=== PATIENT | male | born 1995 | race African-American/Black ===

== ENCOUNTER 2016-08-14 05:38 | Emergency (ER) | payer OTHER ==
[2016-08-14] MEDS ORDERED: Ketorolac INJ* 30 MG/ML 1 ML VIAL IV PUSH ONE (07:07)
--- NOTE | 2016-08-14 07:09 | ED ---
Headache - HPI Summary HPI Summary: 21 M presents with multiple complaints. Complaining of nontender cyst on head, headache, intermittent chest pain. He has had headaches in the past. They have increased since he recently quit smoking a week ago. He denies any visual changes, weakness, neck stiffness, or fevers. The headache wraps around his head in a band like distribution and is achy like. He has only taken tea for the pain. He states he sometimes has been getting a sharp like pain in the center of his chest that lasts for a minute and then resolves. It occurred today and has resolved. It is not associated with SOB or any other symptom. He also has these bumps on the back of his head that have been there for over a year. They are not tender and do not drain. He has not cardiac family history. - History Of Current Complaint Chief Complaint: EDHeadache Stated Complaint: HEADACHE Time Seen by Provider: 08/14/16 06:32 - Allergies/Home Medications Allergies/Adverse Reactions: Allergies Allergy/AdvReac Type Severity Reaction Status Date / Time No Known Allergies Allergy Verified 11/04/15 17:05 PMH/Surg Hx/FS Hx/Imm Hx Cardiovascular History: Denies: Hx Hypertension Respiratory History: Denies: Hx Asthma Infectious Disease History: No Infectious Disease History: Denies: Traveled Outside the [place] in Last 30 Days - Family History Known Family History: Positive: Other - food allergies Negative: Cardiac Disease, Hypertension - Social History Alcohol Use: None Substance Use Type: Reports: None, Marijuana - recently quit Smoking Status (MU): Former Smoker Review of Systems Negative: Fever Positive: Chest Pain Negative: Shortness Of Breath, Cough Negative: Abdominal Pain All Other Systems Reviewed And Are Negative: Yes Physical Exam Triage Information Reviewed: Yes Vital Signs On Initial Exam: Initial Vitals Temp Pulse Resp BP Pulse Ox 99.7 F 76 16 128/79 100 08/14/16 05:43 08/14/16 05:43 08/14/16 05:43 08/14/16 05:43 08/14/16 05:43 Vital Signs Reviewed: Yes Appearance: Positive: Well-Appearing Skin: Positive: Warm, Dry, Other - nontender bumps located on scalp without erythema Head/Face: Positive: Normal Head/Face Inspection Eyes: Positive: Normal, Conjunctiva Clear ENT: Positive: Normal ENT inspection, Pharynx normal, TMs normal, Other - sinus nontender Neck: Positive: Supple, Nontender, No Lymphadenopathy. Negative: Nuchal Rigidity Respiratory/Lung Sounds: Positive: Clear to Auscultation, Breath Sounds Present , Other Cardiovascular: Positive: Normal, RRR Neurological: Positive: Sensory/Motor Intact, Alert, Oriented to Person Place, Time, CN Intact II-III Diagnostics - Vital Signs Vital Signs Temp Pulse Resp BP Pulse Ox 08/14/16 05:43 99.7 F 76 16 128/79 100 - Laboratory Result Diagrams: 08/14/16 06:50 08/14/16 06:50 Lab Statement: Any lab studies that have been ordered have been reviewed, and results considered in the medical decision making process. - EKG No standard instances Cardiac Rate: NL EKG Rhythm: Sinus Rhythm Ectopy: None EKG Interpretation: ST elevated but discussed with dr luna but due to age normal EKG Re-Evaluation - Re-Evaluation First Eval Re-Evaluation Time: 08:50 Change: Improved Comment: headache resolved Headache Course/Dx - Course Course Of Treatment: 21 M presents with headache intermittent for a week, bandlike distrubition and has not taken any pain medication for it, no neck pain states has headaches in past but has inc in frequency after quiting marijuna and cigarettes a week ago, chest pain that is sharp like intermittient center of chest, had episode this morning that resolves, nonreproducible and has no cardiac risk factors, did EKG which had some ST elevation that discussed with jeremy is normal for a 21, ordered labs which were normal, bumps on scalp appear to be cyst do not appear infectious will have follow up with primary as do not cause any pain, warned about signs of infection to return, reassured that chest pain is not cardiac like and headache is likely a tension headache, patient will establish care with PCP, patient agrees with plan - Diagnoses Differential Diagnosis/HQI/PQRI: Sinus Headache, Tension Headache, Other - chest pain Provider Diagnoses: Headache, Chest pain Discharge - Discharge Plan Condition: Good Disposition: HOME Patient Education Materials: General Headache (ED) Referrals: [facility] [place] [facility] [place]Outside] Additional Instructions: Take Tylenol or ibuprofen every 6 hours as needed for headache Establish care with primary care physician Return to ED if develop any new or worsening symptoms
[2016-08-14 07:16] LABS: Hematocrit 44 % (42-52); Hemoglobin 14.4 g/dl (14.0-18.0); Mean Corpuscular HGB Conc 33 g/dl (31-36); Mean Corpuscular Hemoglobin 29 pg (27-31); Mean Corpuscular Volume 89 fL (80-94); Mean Platelet Volume 8 um3 (7.4-10.4); Red Blood Count 4.91 10^6/ul (4.0-5.4); Red Cell Distribution Width 13 % (10.5-15); White Blood Count 9.2 10^3/ul (3.5-10.8)
[2016-08-14 07:27] LABS: Albumin 4.1 g/dL (3.2-5.2); BUN/Creatinine Ratio 15.3 (8-20); Calcium 9.1 mg/dL (8.6-10.3); EGFR Non-African American 95.6 (>60); Globulin 3.1 g/dL (2-4); Potassium 3.6 mmol/L (3.5-5.0); Total Bilirubin 0.3 mg/dL (0.2-1.0); Total Protein 7.2 g/dL (6.4-8.9)
[2016-08-14 11:02] VITALS: BP 112/63
== END 2016-08-14 10:54 | disposition home or self-care (01) ==
LOC: ED 05:38
DX: R51 Headache (principal); R07.9 Chest pain, unspecified; Z87.891 Personal history of nicotine dependence
CPT/HCPCS: 36415; 80053; 84484; 85025; 93005; 96374; 99283; J1885

== ENCOUNTER 2017-03-14 08:48 | Emergency (ER) | payer OTHER ==
[2017-03-14 09:15] VITALS: BP 111/72
--- NOTE | 2017-03-14 09:39 | RAD ---
INDICATION: Right knee pain. TECHNIQUE: 4 views of the right knee were obtained. FINDINGS: The bones are in normal alignment. No joint effusion or fracture is seen. Joint spaces appear maintained. IMPRESSION: NEGATIVE EXAM.
--- NOTE | 2017-03-14 10:45 | ED ---
Terence Smith Rebecca, scribed for Georges Ruffin MD on 03/14/17 at 1031 . Lower Extremity - HPI Summary HPI Summary: Pt is a 22 y/o M who presents to ED c/o R knee pain over the knee cap. Pain began slightly over 1 month ago and has been intermittent since onset. Pt reports he initially believed it was a pulled muscle and that it "gives out." Pain is currently not present and he has been tretaing it with a knee brace. Sx aggravated by playing basketball, alleviated by nothing. Denies fever, chills and any other pain including abd pain and CP. - History of Current Complaint Chief Complaint: EDExtremityLower Stated Complaint: RT KNEE RECHECK Time Seen by Provider: 03/14/17 10:18 Hx Obtained From: Patient Onset of Pain: Prior to Arrival Onset/Duration: Weeks - over 1 month Severity Currently: None Pain Intensity: 0 Pain Scale Used: 0-10 Numeric Timing: Intermittent Location: Is Discrete @ - R knee over the knee cap Associated Signs And Symptoms: Positive: Negative. Negative: Fever, Abdominal Pain Aggravating Factor(s): Other - Playing basketball Alleviating Factor(s): Nothing - Allergies/Home Medications Allergies/Adverse Reactions: Allergies Allergy/AdvReac Type Severity Reaction Status Date / Time No Known Allergies Allergy Verified 03/14/17 08:53 PMH/Surg Hx/FS Hx/Imm Hx Cardiovascular History: Denies: Hx Hypertension Respiratory History: Denies: Hx Asthma Infectious Disease History: No Infectious Disease History: Denies: Traveled Outside the [place] in Last 30 Days - Family History Known Family History: Positive: Other - food allergies Negative: Cardiac Disease, Hypertension - Social History Alcohol Use: None Substance Use Type: Reports: Marijuana Substance Use Comment - Amount & Last Used: "more than I should" Smoking Status (MU): Former Smoker Review of Systems Negative: Fever, Chills Negative: Chest Pain Negative: Abdominal Pain Positive: Arthralgia - R knee pain All Other Systems Reviewed And Are Negative: Yes Physical Exam - Summary Physical Exam Summary: 22 yr old with pain over the right patella, but no pain over the patellar tendon , no fx on xray, and no effusion or redness. Symptoms for more than a month. referral to ortho for follow up. Triage Information Reviewed: Yes Vital Signs On Initial Exam: Initial Vitals Temp Pulse Resp BP Pulse Ox 97.8 F 60 16 127/92 100 03/14/17 08:53 03/14/17 08:53 03/14/17 08:53 03/14/17 08:53 03/14/17 08:53 Vital Signs Reviewed: Yes Appearance: Positive: Well-Appearing, No Pain Distress Skin: Positive: Warm, Skin Color Reflects Adequate Perfusion Head/Face: Positive: Normal Head/Face Inspection Eyes: Positive: EOMI ENT: Positive: Normal ENT inspection Neck: Positive: Nontender Respiratory/Lung Sounds: Positive: Clear to Auscultation, Breath Sounds Present Cardiovascular: Positive: RRR. Negative: Murmur Abdomen Description: Positive: Nontender Musculoskeletal: Positive: Strength/ROM Intact, Other - no effusion, redness or increased warmth to the right knee. He is not focally tender. Patellar tendon is non tender with no pain. Neurological: Positive: Sensory/Motor Intact, Alert, Oriented to Person Place, Time, CN Intact II-III, Normal Gait Psychiatric: Positive: Normal Diagnostics - Vital Signs Vital Signs Temp Pulse Resp BP Pulse Ox 03/14/17 09:10 97.6 F 60 18 111/72 100 03/14/17 08:53 97.8 F 60 16 127/92 100 - Laboratory Lab Statement: Any lab studies that have been ordered have been reviewed, and results considered in the medical decision making process. - Radiology Knee XR Xray Interpretation: No Acute Changes - NEGATIVE EXAM. Radiology Interpretation Completed By: Radiologist Lower Extremity Course/Dx - Course Assessment/Plan: Pt is a 22 y/o M who presents to ED c/o intermittent R knee pain over the knee cap for over the last month. Pt reports he initially believed it was a pulled muscle and that it "gives out." Pain is currently not present and he has been tretaing it with a knee brace. Sx aggravated by playing basketball. Denies fever, chills and any other pain including abd pain and CP. Knee XR reveals no acute findings. - Diagnoses Provider Diagnoses: Knee pain Discharge - Discharge Plan Condition: Good Disposition: HOME Prescriptions: Ibuprofen TAB* [Motrin TAB* 600 MG] 600 mg PO Q6H PRN #20 tab PRN Reason: Pain Patient Education Materials: Knee Pain (ED) Referrals: Ese Vidales MD [Medical Doctor] - 1 Day No Primary Care Phys,NOPCP [Primary Care Provider] - The documentation as recorded by the Terence blood Rebecca accurately reflects the service I personally performed and the decisions made by me, Georges Ruffin MD.
== END 2017-03-14 10:44 | disposition home or self-care (01) ==
LOC: ED 08:48
DX: M25.561 Pain in right knee (principal); F12.90 Cannabis use, unspecified, uncomplicated; Z87.891 Personal history of nicotine dependence
CPT/HCPCS: 99282

== ENCOUNTER 2017-04-18 03:31 | Emergency (ER) | payer OTHER ==
--- NOTE | 2017-04-18 07:02 | RAD ---
INDICATION: Left hand pain after punching a wall COMPARISON: None. TECHNIQUE: 3 views of the left hand were obtained. FINDINGS: At the base of the fifth metatarsal there is a comminuted slightly displaced fracture. On the lateral view there is a small degree of dorsal angulation. There is questionable nondisplaced fracture involving the proximal head of the left fourth metatarsal carpal. The remaining visualized bones are intact and appropriately aligned. IMPRESSION: Definite fracture involving the proximal pole of the left fifth metacarpal with likely nondisplaced fracture of the proximal fourth metacarpal.
[2017-04-18] MEDS ORDERED: Ondansetron ODT TAB* 4 MG PO ONE (07:31)
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
[2017-04-18 10:10] VITALS: BP 111/62
--- NOTE | 2017-04-21 14:59 | ED ---
Aracelis Smith Thomas, scribed for Keith Amado MD on 04/18/17 at 0959 . Progress - Progress Note Progress Note: The patient is a sign out from Dr. Hurst to Dr. Amado at shift change pending disposition and splinting of his arm. Hand XR shows Definite fracture involving the proximal pole of the left fifth metacarpal with likely nondisplaced fracture of the proximal fourth metacarpal. ED physician has reviewed this report and agrees. I applied a volar splint to the patients left hand. It is 7.5 cm wide and 16 cm long. Pulses and movement were intact before and after splinting. The patient is diagnosed with metacarpal fractures. He is stable and will be discharged home. He will follow up with orthopedics in 2 days. He was given a work excuse for today. The patient is agreeable to this plan. Course/Dx - Diagnoses Provider Diagnoses: Fracture, metacarpal The documentation as recorded by the stalinibAracelis amador Thomas accurately reflects the service I personally performed and the decisions made by , Keith Amado MD.
== END 2017-04-18 10:10 ==
LOC: EDBD → MERGE 03:31 → ED 03:31
DX: S62.309A Unspecified fracture of unspecified metacarpal bone, initial encounter for closed fracture (principal); Y04.0XXA Assault by unarmed brawl or fight, initial encounter; Y93.9 Activity, unspecified; Y92.9 Unspecified place or not applicable; Y99.9 Unspecified external cause status
CPT/HCPCS: 99283; A9270-GY

== ENCOUNTER 2017-05-06 13:01 | Emergency (ER) | payer OTHER ==
[2017-05-06 13:07] VITALS: BP 132/86
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
== END 2017-05-06 14:44 | disposition home or self-care (01) ==
LOC: ED 13:01
DX: S62.92XA Unspecified fracture of left hand, initial encounter for closed fracture (principal); X58.XXXA Exposure to other specified factors, initial encounter; Y93.9 Activity, unspecified; Y92.9 Unspecified place or not applicable
CPT/HCPCS: 99281

== ENCOUNTER → 2018-01-11 12:46 | Day surgery (SDC) | payer OTHER ==
--- NOTE | 2017-12-29 21:52 | HP ---
HISTORY AND PHYSICAL: DATE OF SURGERY: 01/04/18 DATE OF OFFICE VISIT: 12/27/17 SURGEON: Ese Vidales MD * (DICTATED BY HUAN RYAN) PROCEDURE: Right knee arthroscopy with partial lateral meniscectomy, possible chondroplasty, and possible synovectomy. CHIEF COMPLAINT: Right knee pain. HISTORY OF PRESENT ILLNESS: Mr. Ibarra is a 22-year-old gentleman with complaints of right knee pain. He injured his knee playing basketball. He has had pain along the lateral aspect of the knee. An MRI confirms a lateral meniscus tear and he has elected to proceed with surgery. PAST MEDICAL HISTORY: Denies. PAST SURGICAL HISTORY: Denies. CURRENT MEDICATIONS: Ibuprofen and Tylenol as needed. ALLERGIES: None. FAMILY HISTORY: Denies. SOCIAL HISTORY: A 22-year-old gentleman lives with his girlfriend. He smokes about a pack a day. Reports occasional marijuana use and alcohol use. REVIEW OF SYSTEMS: A complete 14-point review of systems was reviewed with the patient, it was all negative or noncontributory. PHYSICAL EXAMINATION GENERAL: He is well-developed, well-nourished, in no acute distress. VITAL SIGNS: Stands 5 feet 6 inches tall, he is 145 pounds. His blood pressure is 116/70, his heart rate is 60. HEENT: Normocephalic, atraumatic. NECK: Supple. No palpable lymph nodes. PULMONARY: The lungs are clear to auscultation bilaterally. CARDIO: Regular rate and rhythm. Strong S1, S2. ABDOMEN: Soft, nontender, and nondistended. NEUROLOGIC: He is alert and oriented x3. Cranial nerves II through XII are intact. MUSCULOSKELETAL: Right lower extremity, the skin is intact. There are no open wounds or abrasions. He has some tenderness along the lateral joint line. He has positive Alem. 2+ dorsalis pedis pulses. Intact sensation in his lower extremity. Muscle group strengths are intact to 5/5. ASSESSMENT AND PLAN: Mr. Ibarra is a 22-year-old gentleman with complaints of right lateral knee pain and MRI confirms a lateral meniscus tear. He failed conservative treatment and elected to proceed with right knee arthroscopy with partial lateral meniscectomy, possible chondroplasty, possible synovectomy. The surgery is scheduled for 01/04/[address] Vidales discussed the risks and the benefits of the surgery at today's visit and all of his questions were answered. He will follow up with Dr. Vidales 2 weeks after the surgery. HUAN RYAN [id number]/[facility] #: [id number] TREVOR
[~2018-01-11 12:46] MED LIST: Buffered Lidocaine 0.9% SYRIN* 5 ML/SYR SYRINGE INTRADERM ONE; Bupivacaine 0.5% PF 10 ML VIAL INJ ONE; Dexamethasone IV* 4 MG/ML 1 ML (4 MG) IV SLOW PU ONE; Dexamethasone TAB* 4 MG ONE; Dexamethasone TAB* 4 MG PO ONE; DiMENhydriNATE IV* 50 MG/ML VIAL IV PUSH PRN; EPINEPHRINE 1 MG/ML 1 ML VIAL ONE; Famotidine IV* 10 MG/ML 2 ML (20 mg) IV ONE; Famotidine IV* 10 MG/ML 2 ML (20 mg) ONE; Ketorolac INJ* 30 MG/ML 1 ML VIAL ONE; Lidocaine 2% PF * 5 ML VIAL ONE; Midazolam* 1 MG/ML 5 ML VIAL (5 MG) ONE; Morphine INJ* 2 MG/ML 1 ML CARPUJECT IV PRN; Naloxone* 0.4 MG/ML 1 ML VIAL IV PRN; Ondansetron INJ* 2 MG/ML VIAL ONE; Ondansetron ODT TAB* 4 MG ONE; PROCHLORPERAZINE INJ 5 MG/ML 2 ML VIAL IV PRN; Propofol* 10 MG/ML 20 ML BTL IV PUSH ONE; Scopolamine 1.5 mg* PATCH TRANSDERM PRN; Scopolamine PATCH Remove* 1 NOTE MISC PATCH OFF ONE; Tranexamic Acid 1,000 MG/10 ML 1,000 MG in NS 0.9% 100 ML* 100 ML IV ONE; ceFAZolin 2 GM PREMIX (*) 2 GM/50 ML BAG IVPB ONE; fentaNYL* 50 MCG/ML 2 ML VIAL (100 MCG VIAL) IV PRN; fentaNYL* 50 MCG/ML 2 ML VIAL (100 MCG VIAL) ONE; methylPREDNISolone ACETATE 80* 80 MG/ML 1 ML VIAL ONE; oxyCODONE/Acetamin 5/325 MG* TAB ONE; oxyCODONE/Acetamin 5/325 MG* TAB PO PRN
[2018-01-11 16:49] VITALS: BP 158/100
--- NOTE | 2018-01-12 15:41 | OP ---
OPERATIVE REPORT: DATE OF OPERATION: 01/11/18. DATE OF : [birth year]. ATTENDING SURGEON: Ese Vidales MD. ALMOND PASTE MOLDER: HUAN Astudillo. Ms. Amador did help throughout the procedure with preparation of the leg, wound retraction, manipulat ion of the knee and wound closure. ANESTHESIOLOGIST: Dr. Adorno. ANESTHESIA: General. PRE-OP DIAGNOSIS: Right knee lateral meniscal tear, intraarticular cyst. POST-OP DIAGNOSIS: Right knee lateral meniscal tear, intraarticular cyst. OPERATIVE PROCEDURE: Right knee arthroscopy with intraarticular ganglion excision, partial lateral m eniscectomy. COMPLICATIONS: None. ESTIMATED BLOOD LOSS: Less than 25 cc. SPECIMENS: Excised ganglion and anterior synovitis of the knee joint, sent to Pathology. BRIEF HISTORY/INDICATION: Mr. Ibarra is a 22-year-old gentleman who injured his right knee playing b asketball in October. Since that time, he has had increasing pain and mechanical symptoms along the la teral joint line and anterior portion of his knee. MRI confirmed an intraarticular parameniscal cyst associated with lateral meniscal tear. Since the patient failed conservative treatment and continue d to have pain, he elected to undergo right knee arthroscopy with partial lateral meniscectomy and cy st excision. Informed consent was obtained from the patient. He understood the risks of surgery inc luded, but were not limited to, bleeding, infection, damage to nearby structures, continued pain, nee d for further surgery, recurrence of the cyst, re-tear of the meniscus, progression of arthritis, str kian, heart attack, blood clot, and . He wished to proceed. DESCRIPTION OF PROCEDURE: Ms. Ibarra was identified in the preanesthesia unit. His right lower extre mity was marked as the correct operative side. Informed consent was signed and placed in the chart. T he patient was taken to the operating room and placed under general anesthesia without difficulty. R ight lower extremity was prepped and draped in the usual sterile fashion. Preop time-out was made to correctly identify the patient's side and site. Appropriate perioperative antibiotics were given with in 1 hour of incision. A 0.5-cm standard anterolateral portal incision was made with a 15 blade and carried down to the caps ule. Trocar was introduced. As soon as the light and water sources were turned on, there was immedi ate visualization of the suprapatellar pouch. A tour of the knee joint was performed. Suprapatellar pouch showed no obvious abnormality. Patellofemoral compartment showed a no significant cartilage abn ormalities. Medial gutters showed no loose body or plica. Medial compartment showed no obvious meni scal tear or degenerative changes of the cartilage. Anterior joint has some white and yellow fibrous tissue consistent with possible cyst. No visible mass was identified. ACL appeared to be intact. The knee was placed in the [id number] position. The lateral compartment immediately showed a par rot peak type tear of the lateral meniscus, anterior and middle portion, with displacement into the j oint. There were some grade 2 [place] cartilage changes associated with the meniscal tear. No s ignificant areas of exposed subchondral bone. Lateral gutters showed no loose body or significant pl ica. Under direct visualization a medial portal incision was made. A probe was introduced into the joint. No additional findings were noted. Shaver and radiofrequency ablation wand were used to excise the cystic soft tissue in the anterior joint line and anterolateral joint line. The specimen was collect ed and sent to pathology. A straight bitter and shaver were used to perform partial lateral meniscec alan until a smooth border of the lateral meniscus was obtained in the mid portion and anterior porti on. This was performed in the white-red zone. Further probing of the lateral meniscus showed no cleopatra tional tears or flipped fragments. The knee was copiously irrigated with sterile saline. All instru ments were removed. The incisions were closed using nylon suture. Sterile Xeroform, 4x4s, and Webri l were used to cover the incision. Giles wrap and cold pack were placed over this. The patient's anest hesia was reversed without difficulty. He was taken to the PACU in stable condition. Intended weigh tbearing will be weightbearing as tolerated. Intended DVT prophylaxis will be aspirin. He will follo w up in 2 weeks' time for suture removal. [id number]/[facility] #: [id number]
== END | disposition home or self-care (01) ==
LOC: OR 12:46
PROVIDERS: ATTEND Orthopaedic Surgery Adult Reconstructive Orthopaedic Surgery
DX: S83.281A Other tear of lateral meniscus, current injury, right knee, initial encounter (principal); F17.210 Nicotine dependence, cigarettes, uncomplicated; X58.XXXA Exposure to other specified factors, initial encounter
CPT/HCPCS: 88112; A9270-GY; J0690; J1040; J1885; J2250; J2704; J3010; J8540

== ENCOUNTER 2018-01-17 00:36 | Emergency (ER) | payer OTHER ==
[2018-01-17] MEDS ORDERED: Ketorolac INJ* 30 MG/ML 1 ML VIAL IV PUSH ONE (02:00)
[2018-01-17 03:14] LABS: ABS Basophils 0.1 10^3/ul (0-0.2); ABS Eosinophils 0.5 10^3/ul (0-0.6); ABS Lymphocytes 1.8 10^3/ul (1.0-4.8); ABS Monocytes 0.6 10^3/ul (0-0.8); ABS Neutrophils 3.3 10^3/ul (1.5-7.7); ABS Nucleated RBC 0 10^3/ul; Eosinophil % 7.9 % (0-6); Hematocrit 40 % (42-52); Hemoglobin 13.9 g/dl (14.0-18.0); Lymphocyte % 28.4 % (25-47); Mean Corpuscular HGB Conc 34 g/dl (31-36); Mean Corpuscular Hemoglobin 31 pg (27-31); Mean Corpuscular Volume 91 fL (80-94); Mean Platelet Volume 8.6 um3 (7.4-10.4); Nucleated Red Blood Cells % 0.1; Platelet Count 224 10^3/ul (150-450); Red Blood Count 4.46 10^6/ul (4.00-5.40); Red Cell Distribution Width 13 % (10.5-15); White Blood Count 6.2 10^3/ul (3.5-10.8)
[2018-01-17 03:23] LABS: INR 0.94 (0.77-1.02)
[2018-01-17 03:26] LABS: EGFR Non-African American 136.3 (>60)
--- NOTE | 2018-01-17 03:49 | ED ---
Terence Smith Rebecca, scribed for Michelle Chand MD on 01/17/18 at 0206 . HPI Chest Pain - HPI Summary HPI Summary: Pt is a 23 y/o M who presents to ED c/o left anterior CP. Pain began 1 week ago s/p R knee effusion drain upon returning home from the surgery. On triage, pain is severe ranked 8/10 and described as intermittent throbbing. Pain is not present in the morning, returning when he "sits a certain way." Has been taking Ibuprofen and ASA s/p knee surgery. Sx slightly aggravated by deep breaths, made much worse with certain movements or positions, alleviated by nothing. - History of Current Complaint Chief Complaint: EDChestWallPain Time Seen by Provider: 01/17/18 01:50 Hx Obtained From: Patient Onset/Duration: Started Weeks Ago - 1 week, Still Present Timing: Intermittent Current Severity: Severe Pain Intensity: 8 Pain Scale Used: 0-10 Numeric Chest Pain Location: Left Anterior Chest Pain Radiates: No Aggravating Factor(s): Position, Movement, Deep Breaths Alleviating Factor(s): Nothing Associated Signs and Symptoms: Positive: Negative - Allergy/Home Medications Allergies/Adverse Reactions: Allergies Allergy/AdvReac Type Severity Reaction Status Date / Time No Known Allergies Allergy Verified 01/17/18 00:46 PMH/Surg Hx/FS Hx/Imm Hx Endocrine/Hematology History: Denies: Hx Diabetes Cardiovascular History: Denies: Hx Coronary Artery Disease, Hx Hypertension, Hx Pacemaker/ICD Respiratory History: Denies: Hx Asthma History: Denies: Hx Renal Disease Musculoskeletal History: Reports: Other Musculoskeletal History - RT KNEE INJURY STATES SPORTS RELATED Sensory History: Denies: Hx Hearing Aid Psychiatric History: Denies: Hx Panic Disorder - Surgical History Surgery Procedure, Year, and Place: DENIES Infectious Disease History: No Infectious Disease History: Denies: Traveled Outside the [place] in Last 30 Days - Family History Known Family History: Positive: Other - food allergies Negative: Cardiac Disease, Hypertension - Social History Alcohol Use: Occasionally Alcohol Amount: 2-3 DRINKS EVERY FEW WEEKS Hx Substance Use: Yes Substance Use Type: Reports: Marijuana Substance Use Comment - Amount & Last Used: occasionally, PT WILL REFRAIN UNTIL POST-OP Hx Tobacco Use: Yes Smoking Status (MU): Light Every Day Tobacco Smoker Type: Cigarettes Amount Used/How Often: STATES 2-3 CIGS/DAY Have You Smoked in the Last Year: Yes Review of Systems Negative: Fever Positive: Chest Pain All Other Systems Reviewed And Are Negative: Yes Physical Exam - Summary Physical Exam Summary: VITAL SIGNS: Reviewed. GENERAL: Patient is a well-developed and nourished male who is lying comfortable in the stretcher. Patient is not in any acute respiratory distress. HEAD AND FACE: No signs of trauma. No ecchymosis, hematomas or skull depressions. No sinus tenderness. EYES: PERRLA, EOMI x 2, No injected conjunctiva, no nystagmus. EARS: Hearing grossly intact. Ear canals and tympanic membranes are within normal limits. MOUTH: Oropharynx within normal limits. NECK: Supple, trachea is midline, no adenopathy, no JVD, no carotid bruit, no c- spine tenderness, neck with full ROM. CHEST: Symmetric, pain with movement LUNGS: Clear to auscultation bilaterally. No wheezing or crackles. CVS: Regular rate and rhythm, S1 and S2 present, no murmurs or gallops appreciated. ABDOMEN: Soft, non-tender. No signs of distention. No rebound no guarding, and no masses palpated. Bowel sounds are normal. EXTREMITIES: FROM in all major joints, no edema, no cyanosis or clubbing. NEURO: Alert and oriented x 3. No acute neurological deficits. Speech is normal and follows commands. SKIN: Dry and warm Triage Information Reviewed: Yes Vital Signs On Initial Exam: Initial Vitals Temp Pulse Resp BP Pulse Ox 98.6 F 65 18 155/78 100 01/17/18 00:42 01/17/18 00:42 01/17/18 00:42 01/17/18 00:42 01/17/18 00:42 Vital Signs Reviewed: Yes Diagnostics - Vital Signs Vital Signs Temp Pulse Resp BP Pulse Ox 01/17/18 00:42 98.6 F 65 18 155/78 100 - Laboratory Result Diagrams: 01/17/18 02:58 01/17/18 02:58 Lab Statement: Any lab studies that have been ordered have been reviewed, and results considered in the medical decision making process. - Radiology CXR Xray Interpretation: No Acute Changes - No acute process. Pending official report. Radiology Interpretation Completed By: ED Physician - EKG 0031 Cardiac Rate: NL - 65 bpm EKG Rhythm: Sinus Rhythm EKG Interpretation: LVH, J point elevation Re-Evaluation - Re-Evaluation First Eval Re-Evaluation Time: 03:35 Comment: Discussed results and D/C plan. Chest Pain Course/Dx - Course Assessment/Plan: Pt is a 23 y/o M who presents to ED c/o left anterior CP for 1 week s/p R knee effusion drain. On triage, pain is severe ranked 8/10 and described as intermittent throbbing. Pain is not present in the morning, returning when he "sits a certain way." Has been taking Ibuprofen and ASA s/p knee surgery. Sx slightly aggravated by deep breaths, made much worse with certain movements or positions. CXR reveals no acute findings. EKG is sinus rhythm with LVH, J point elevation. Blood work was done with results including a troponin of 0.01 and D-Dimer <200. In the ED course, pt received Toradol. He will be D/C to home with Dx of chest wall pain with a follow up with his PCP. He understands and agrees. - Diagnoses Provider Diagnoses: Chest wall pain Discharge - Sign-Out/Discharge Documenting (check all that apply): Discharge/Admit/Transfer - Discharge - Discharge Plan Condition: Stable Disposition: HOME Patient Education Materials: Chest Wall Pain (ED) Referrals: Ese Vidales MD [Primary Care Provider] - 3 Days Additional Instructions: RETURN TO ED FOR ANY NEW OR WORSENING SYMPTOMS. The documentation as recorded by the Terence blood Rebecca accurately reflects the service I personally performed and the decisions made by , Michelle Chand MD.
[2018-01-17 03:52] VITALS: BP 120/74
--- NOTE | 2018-01-17 08:19 | RAD ---
INDICATION: Chest pain COMPARISON: None. TECHNIQUE: Single AP portable view of the chest was obtained. FINDINGS: Image quality is compromised due to the relative inferiority of a portable chest x-ray. The heart and mediastinum exhibit normal size and contour. The lungs are grossly clear. There is no evidence of a large pleural effusion. Visualized bones are normal for the patient's age. IMPRESSION: No radiographic evidence for acute cardiopulmonary abnormality on this portable chest x-ray.
== END 2018-01-17 03:51 | disposition home or self-care (01) ==
LOC: ED 00:36
DX: R07.89 Other chest pain (principal); F17.210 Nicotine dependence, cigarettes, uncomplicated
CPT/HCPCS: 36415; 71045; 80053; 82550; 83605; 83735; 84484; 85025; 85379; 85610; 85730; 93005; 96374; 99283; J1885

== ENCOUNTER 2018-12-05 20:44 | Emergency (ER) | payer OTHER ==
--- NOTE | 2018-12-05 21:29 | ED ---
Throat Pain/Nasal Congestion - HPI Summary HPI Summary: Patient sent from [facility] for further evaluation of possible dental abscess on upper right side of mouth and right side facial swelling. Patient states history of intermittent facial swelling over the past month. History of dental caries. Denies dental pain, purulent discharge, fever, cough, sore throat, CP, SOB, N/V/V abdominal pain, change in urine, change in BM. Medical history is none. Patient given Pen-Vee K by urgent care. Patient has taken one dose so far. - History of Current Complaint Chief Complaint: EDDentalPain Time Seen by Provider: 12/05/18 21:07 Hx Obtained From: Patient Onset/Duration: Gradual Onset, Lasting Weeks Severity: Mild Associated Signs And Symptoms: Positive: Negative Cough: None - Allergies/Home Medications Allergies/Adverse Reactions: Allergies Allergy/AdvReac Type Severity Reaction Status Date / Time No Known Allergies Allergy Verified 12/05/18 20:53 PMH/Surg Hx/FS Hx/Imm Hx Endocrine/Hematology History: Denies: Hx Diabetes Cardiovascular History: Denies: Hx Coronary Artery Disease, Hx Hypertension, Hx Pacemaker/ICD Respiratory History: Denies: Hx Asthma History: Denies: Hx Renal Disease Musculoskeletal History: Reports: Other Musculoskeletal History - RT KNEE INJURY STATES SPORTS RELATED Sensory History: Denies: Hx Hearing Aid Psychiatric History: Denies: Hx Panic Disorder - Surgical History Surgery Procedure, Year, and Place: DENIES Infectious Disease History: No Infectious Disease History: Denies: Traveled Outside the [place] in Last 30 Days - Family History Known Family History: Positive: Other - food allergies Negative: Cardiac Disease, Hypertension - Social History Alcohol Use: Occasionally Alcohol Amount: 2-3 DRINKS EVERY FEW WEEKS Hx Substance Use: Yes Substance Use Type: Reports: Marijuana Substance Use Comment - Amount & Last Used: occasionally Hx Tobacco Use: Yes Smoking Status (MU): Former Smoker Type: Cigarettes Amount Used/How Often: STATES 2-3 CIGS/DAY Have You Smoked in the Last Year: Yes Review of Systems Constitutional: Negative Eyes: Negative Positive: Other Cardiovascular: Negative Respiratory: Negative Gastrointestinal: Negative Genitourinary: Negative Musculoskeletal: Negative Skin: Negative Neurological: Negative Psychological: Normal All Other Systems Reviewed And Are Negative: Yes Physical Exam - Summary Physical Exam Summary: Facial swelling superior and lateral to mouth, lateral to right side of nose.No involvement of nose. No periorbital involvement. No apical abscess or swelling noted intraorally. Swelling appears to be unrelated to dentition. No apical abscess or fluctuance noted to area of right side facial swelling. Full range of motion of jaw. Normal ENT exam. Triage Information Reviewed: Yes Vital Signs On Initial Exam: Initial Vitals Temp Pulse Resp BP Pulse Ox 99.5 F 64 16 132/90 99 12/05/18 20:52 12/05/18 20:52 12/05/18 20:52 12/05/18 20:52 12/05/18 20:52 Vital Signs Reviewed: Yes Appearance: Positive: Well-Appearing Skin: Positive: Warm Diagnostics - Vital Signs Vital Signs Temp Pulse Resp BP Pulse Ox 12/05/18 20:52 99.5 F 64 16 132/90 99 - Laboratory Lab Statement: Any lab studies that have been ordered have been reviewed, and results considered in the medical decision making process. EENT Course/Dx - Course Course Of Treatment: Patient sent from [facility] for further evaluation of possible dental abscess on upper right side of mouth and right side facial swelling. Patient states history of intermittent facial swelling over the past month. History of dental caries. Denies dental pain, purulent discharge, fever , cough, sore throat, CP, SOB, N/V/V abdominal pain, change in urine, change in BM. Medical history is none. Patient given Pen-Vee K by urgent care. Patient has taken one dose so far. Physical exam:Facial swelling superior and lateral to mouth, lateral to right side of nose.No involvement of nose. No periorbital involvement. No apical abscess or swelling noted intraorally. Swelling appears to be unrelated to dentition. No apical abscess or fluctuance noted to area of right side facial swelling. Full range of motion of jaw. Normal ENT exam. Vital signs within normal limits. Early facial abscess. No indication for I&D at this time. Trial of oral antibiotics. Rx for Augmentin to replace Pen-Vee K. Patient understands and improves with plan. - Diagnoses Provider Diagnoses: Abscess Discharge - Sign-Out/Discharge Documenting (check all that apply): Patient Departure Patient Received Moderate/Deep Sedation with Procedure: No - Discharge Plan Condition: Stable Disposition: HOME Prescriptions: Amoxicillin/Clavulanate TAB* [Augmentin TAB 875*] 875 mg PO BID #20 tab Patient Education Materials: Abscess (ED) Forms: *Work Release Referrals: Ese Vidales MD [Primary Care Provider] - Additional Instructions: Take antibiotics as directed. Return to the ED for any new or worsening symptoms. - Billing Disposition and Condition Condition: STABLE Disposition: Home
[2018-12-05 21:42] VITALS: BP 136/94
== END 2018-12-05 21:42 | disposition home or self-care (01) ==
LOC: ED 20:44
DX: K04.7 Periapical abscess without sinus (principal); Z87.891 Personal history of nicotine dependence
CPT/HCPCS: 99282